=== PATIENT | female | born 1990 | race African-American/Black ===

== ENCOUNTER 2017-06-04 09:20 | Emergency (ER) | payer OTHER ==
[~2017-06-04] VITALS: Ht 165.1 cm; Wt 52.7 kg
[2017-06-04] MEDS ORDERED: DEXAMETHASONE SOD PHOS 4 MG/ML 5 ML VIAL IVP ONE (10:30)
[2017-06-04] MEDS ORDERED: DiphenhydrAMINE HCL 50 MG/ML VIAL IVP ONE (10:30)
[2017-06-04] MEDS ORDERED: SODIUM CHLORIDE 0.9% 1,000 ML IV ONE (10:45)
[2017-06-04 12:20] VITALS: BP 117/69
== END 2017-06-04 12:56 | disposition home or self-care (01) ==
LOC: EMS 09:20
DX: T78.40XA Allergy, unspecified, initial encounter (principal); K08.89 Other specified disorders of teeth and supporting structures; F17.210 Nicotine dependence, cigarettes, uncomplicated; Z88.0 Allergy status to penicillin
CPT/HCPCS: 96361; 96374; 96375; 99285; 99406; J1100; J1200; J7030

== ENCOUNTER 2018-05-22 15:10 | Emergency (ER) | payer MEDICAID, OTHER ==
[~2018-05-22] VITALS: Ht 170.2 cm; Wt 65.9 kg
[2018-05-22] MEDS ORDERED: IBUP-2070 PO (15:17)
[2018-05-22] MEDS ORDERED: IBUPROFEN 800 MG TABLET PO ONE (15:30)
[2018-05-22] MEDS ORDERED: CLINDAMYCIN HCL 150 MG CAPSULE PO ONE (15:30)
[2018-05-22 16:00] VITALS: BP 120/76
== END 2018-05-22 16:05 | disposition home or self-care (01) ==
LOC: EMS 15:14
DX: K02.9 Dental caries, unspecified (principal); F17.210 Nicotine dependence, cigarettes, uncomplicated; F41.9 Anxiety disorder, unspecified; Z88.0 Allergy status to penicillin
CPT/HCPCS: 99406

== ENCOUNTER 2020-01-03 04:49 | Emergency (ER) | payer MEDICAID ==
[~2020-01-03] VITALS: Ht 165.1 cm; Wt 54.5 kg
[2020-01-03] MEDS ORDERED: SODIUM CHLORIDE 0.9% 1,000 ML IV ONE (05:30)
[2020-01-03 05:48] LABS: ANION GAP 9 mmol/L (8-16); CALCIUM, TOTAL 8.6 mg/dL (8.8-10.5); CARBON DIOXIDE 27 mmol/L (22-29); CHLORIDE 103 mmol/L (98-107); CREATININE 0.68 mg/dL (0.60-1.30); GLOMERULAR FILTR. RATE CALC > 60 mL/min (>60); GLUCOSE,RANDOM 80 mg/dL (70-110); HEMATOCRIT 25.8 % (36-46); HEMOGLOBIN 7.6 g/dL (12.0-16.0); MEAN CORPUSCULAR HEMOGLOBIN 18.2 pg (26.0-34.0); MEAN CORPUSCULAR HGB CONC 29.5 G/dL (31.0-37.0); MEAN CORPUSCULAR VOLUME 61 fL (80-100); PLATELET COUNT (AUTO) 420 K/uL (150-450); POTASSIUM 3.5 mmol/L (3.5-5.1); SODIUM SERUM 139 mmol/L (136-145); UREA NITROGEN, BLOOD 11 mg/dL (7-18)
[2020-01-03 05:59] LABS: ALANINE AMINOTRANSFERASE 22 U/L (12-78); ALBUMIN 3.6 g/dL (3.4-5.0); ALKALINE PHOSPHATASE 83 U/L (46-116); ASPARTATE AMINOTRANSFERASE 17 U/L (15-37); HCG,QUANTITATIVE 1 mIU/mL (0-6); TOTAL PROTEIN, SERUM 6.3 g/dL (6.4-8.2)
[2020-01-03 06:10] LABS: BILIRUBIN,TOTAL 0.1 mg/dL (0.1-1.0)
[2020-01-03 06:45] LABS: BAND NEUTROPHILS % (MANUAL) 2 % (0-5); EOSINOPHILS % (MANUAL) 1 % (1-6); LYMPHOCYTES % (MANUAL) 26 % (22-44); MONOCYTES % (MANUAL) 4 % (2-9); SEGMENTED NEUTROPHILS % 67 % (40-70)
[2020-01-03 08:50] LABS: APPEARANCE,URINE CLEAR (CLEAR); BILIRUBIN,URINE NEGATIVE (NEGATIVE); GLUCOSE, URINE (UA) NEGATIVE (NEGATIVE); KETONES,URINE NEGATIVE (NEGATIVE); LEUKOCYTE ESTERASE ,URINE NEGATIVE (NEGATIVE); NITRATE,URINE NEGATIVE (NEGATIVE); OCCULT BLOOD,URINE LARGE (NEGATIVE); PROTEIN,URINE NEGATIVE (NEGATIVE); UROBILINOGEN,URINE 0.2 mg/dL (<=1.0)
[2020-01-03 09:03] LABS: BACTERIA,URINE None Seen /HPF (None Seen); RBC,URINE 51-100 /HPF (0-2); SQUAMOUS EPITHELIAL CELL,UR Moderate /LPF (None Seen); WBC,URINE None Seen /HPF (0-5)
[2020-01-03 09:19] LABS: HEMATOCRIT 23.2 % (36-46); MEAN CORPUSCULAR HGB CONC 29.5 G/dL (31.0-37.0); MEAN CORPUSCULAR VOLUME 61 fL (80-100); PLATELET COUNT (AUTO) 362 K/uL (150-450); RED CELL DISTRIBUTION WIDTH 19.6 % (11.5-14.5)
[2020-01-03 09:30] LABS: HEMOGLOBIN 6.9 g/dL (12.0-16.0)
[2020-01-03 09:46] LABS: BAND NEUTROPHILS % (MANUAL) 1 % (0-5); EOSINOPHILS % (MANUAL) 1 % (1-6); LYMPHOCYTES % (MANUAL) 25 % (22-44); MONOCYTES % (MANUAL) 5 % (2-9); SEGMENTED NEUTROPHILS % 68 % (40-70)
[2020-01-03 09:57] VITALS: BP 106/67
== END 2020-01-03 10:22 | disposition left against medical advice (07) ==
LOC: EMS 04:49
DX: O20.9 Hemorrhage in early pregnancy, unspecified (principal); O26.891 Other specified pregnancy related conditions, first trimester; O9A.311 Physical abuse complicating pregnancy, first trimester; N83.202 Unspecified ovarian cyst, left side; D64.9 Anemia, unspecified; F41.9 Anxiety disorder, unspecified; Z88.0 Allergy status to penicillin; Z3A.01 Less than 8 weeks gestation of pregnancy
CPT/HCPCS: 76830; 76856; 86850; 86900; 86901; 86923; 96360; 36415-L1; 36415-TC

== ENCOUNTER 2020-01-03 13:12 | Emergency (ER) | payer MEDICAID ==
[~2020-01-03] VITALS: Ht 165.1 cm; Wt 52.7 kg
[2020-01-03] MEDS ORDERED: SODIUM CHLORIDE 0.9% 1,000 ML ONE (14:22)
[2020-01-03 15:55] VITALS: BP 113/64
[2020-01-03 16:10] VITALS: BP 120/76
[2020-01-03 16:25] VITALS: BP 121/74
[2020-01-03 16:55] VITALS: BP 120/65
[2020-01-03 17:25] VITALS: BP 121/64
[2020-01-03 17:45] VITALS: BP 124/66
== END 2020-01-03 18:14 | disposition left against medical advice (07) ==
LOC: EMS 13:14
DX: D64.9 Anemia, unspecified (principal); N93.9 Abnormal uterine and vaginal bleeding, unspecified; F12.90 Cannabis use, unspecified, uncomplicated; F41.9 Anxiety disorder, unspecified; F17.210 Nicotine dependence, cigarettes, uncomplicated; Z88.0 Allergy status to penicillin
CPT/HCPCS: 36415; 36430; 86850; 86900; 86901; 86923; 99285; J7030; P9016

== ENCOUNTER 2020-11-25 01:11 | Emergency (ER) | payer MEDICAID ==
[~2020-11-25] VITALS: Ht 167.6 cm; Wt 53.6 kg
[2020-11-25 02:04] VITALS: BP 124/73
[2020-11-25] MEDS ORDERED: CLINDAMYCIN HCL 150 MG CAPSULE PO ONE (02:15)
== END 2020-11-25 02:22 | disposition home or self-care (01) ==
LOC: EMS 01:13
DX: K04.7 Periapical abscess without sinus (principal); F41.9 Anxiety disorder, unspecified; F17.210 Nicotine dependence, cigarettes, uncomplicated; F12.90 Cannabis use, unspecified, uncomplicated; Z88.0 Allergy status to penicillin
CPT/HCPCS: 99283

== ENCOUNTER 2021-03-03 23:41 | Emergency (ER) | payer MEDICAID ==
[~2021-03-03] VITALS: Ht 167.6 cm; Wt 54.5 kg
[2021-03-04 00:37] VITALS: BP 128/74
== END 2021-03-04 00:45 | disposition home or self-care (01) ==
LOC: EMS 23:46
DX: L30.9 Dermatitis, unspecified (principal); F12.90 Cannabis use, unspecified, uncomplicated; F17.210 Nicotine dependence, cigarettes, uncomplicated; F41.9 Anxiety disorder, unspecified; Z88.0 Allergy status to penicillin
CPT/HCPCS: 99283

== ENCOUNTER 2021-11-01 01:51 | Emergency (ER) | payer MEDICAID ==
[~2021-11-01] VITALS: Ht 167.6 cm; Wt 53.6 kg
[2021-11-01 01:54] VITALS: BP 134/78
[2021-11-01] MEDS ORDERED: DOXY-354 PO (02:51)
== END 2021-11-01 03:40 | disposition home or self-care (01) ==
LOC: EMS 01:53
DX: S40.862A Insect bite (nonvenomous) of left upper arm, initial encounter (principal); L02.414 Cutaneous abscess of left upper limb; F12.90 Cannabis use, unspecified, uncomplicated; F17.210 Nicotine dependence, cigarettes, uncomplicated; F41.9 Anxiety disorder, unspecified; Z88.0 Allergy status to penicillin; W57.XXXA Bitten or stung by nonvenomous insect and other nonvenomous arthropods, initial encounter; Y93.89 Activity, other specified; Y92.89 Other specified places as the place of occurrence of the external cause; Y99.8 Other external cause status
CPT/HCPCS: 99283

== ENCOUNTER 2022-04-19 05:49 | Emergency (ER) | payer MEDICAID, OTHER ==
[~2022-04-19] VITALS: Ht 167.6 cm; Wt 54.1 kg
[~2022-04-19 05:49] MED LIST: DOXY-354 PO
[2022-04-19] MEDS ORDERED: IBUPROFEN 600 MG TABLET PO ONE (06:15)
[2022-04-19] MEDS ORDERED: CLINDAMYCIN HCL 150 MG CAPSULE PO ONE (06:15)
[2022-04-19] MEDS ORDERED: CLIN-26 PO (06:18)
[2022-04-19 06:26] VITALS: BP 125/77
== END 2022-04-19 06:27 | disposition home or self-care (01) ==
LOC: EMS 05:50
DX: K08.89 Other specified disorders of teeth and supporting structures (principal); F41.9 Anxiety disorder, unspecified; F17.210 Nicotine dependence, cigarettes, uncomplicated; F12.90 Cannabis use, unspecified, uncomplicated; Z88.0 Allergy status to penicillin
CPT/HCPCS: 99283

== ENCOUNTER 2022-04-27 06:00 | Emergency (ER) | payer OTHER ==
[~2022-04-27] VITALS: Ht 167.6 cm; Wt 54.1 kg
[~2022-04-27 06:00] MED LIST changes: +CLIN-26 PO
[2022-04-27 06:13] VITALS: BP 156/80
[2022-04-27] MEDS ORDERED: LEVONORGESTREL 1.5 MG TABLET PO ONE (08:00)
== END 2022-04-27 08:21 | disposition home or self-care (01) ==
LOC: EMS 06:01
DX: N93.9 Abnormal uterine and vaginal bleeding, unspecified (principal); D50.9 Iron deficiency anemia, unspecified; F41.9 Anxiety disorder, unspecified; F17.210 Nicotine dependence, cigarettes, uncomplicated; F12.90 Cannabis use, unspecified, uncomplicated; Z98.890 Other specified postprocedural states; Z88.0 Allergy status to penicillin
CPT/HCPCS: 99282; 81025; Q9967; Z7502

== ENCOUNTER 2022-10-23 04:54 | Emergency (ER) | payer OTHER ==
[~2022-10-23] VITALS: Ht 167.6 cm; Wt 54.1 kg
[2022-10-23 04:57] VITALS: TEMP 98.5
[2022-10-23 05:09] VITALS: BP 117/71; PULSE 92; RESP 13
[2022-10-23] MEDS ORDERED: IBUP-1492 PO ×2 (06:37→06:55)
[2022-10-23] MEDS ORDERED: AMOX500C2 PO ×2 (06:37→06:55)
[2022-10-23] MEDS ORDERED: IBUPROFEN 600 MG TABLET PO ONE (06:45)
== END 2022-10-23 07:15 | disposition home or self-care (01) ==
LOC: EMS 04:55
DX: K04.7 Periapical abscess without sinus (principal); K02.9 Dental caries, unspecified; F41.9 Anxiety disorder, unspecified; F12.90 Cannabis use, unspecified, uncomplicated; F17.210 Nicotine dependence, cigarettes, uncomplicated; Z88.0 Allergy status to penicillin; Z79.899 Other long term (current) drug therapy
CPT/HCPCS: 99283

== ENCOUNTER 2023-11-16 01:16 | Emergency (ER) | payer OTHER ==
[~2023-11-16] VITALS: Ht 167.6 cm; Wt 72.7 kg
[~2023-11-16 01:16] MED LIST changes: +AMOX500C2 PO; +IBUP-1492 PO
[2023-11-16 01:25] VITALS: BP 102/54; PULSE 99; RESP 20; TEMP 98.1; O2SAT 99
[2023-11-16] MEDS: SODIUM CHLORIDE 0.9% 1,000 ML IV ONE (02:05)
[2023-11-16 02:19] LABS: BASOPHILS % (AUTO) 0.8 % (0.0-2.0); EOSINOPHILS % (AUTO) 0.8 % (1.0-6.0); HEMOGLOBIN 11.9 g/dL (12.0-16.0); LYMPHOCYTES % (AUTO) 21.3 % (22.0-44.0); MEAN CORPUSCULAR HEMOGLOBIN 30.2 pg (26.0-34.0); MEAN CORPUSCULAR HGB CONC 33.1 G/dL (31.0-37.0); MEAN CORPUSCULAR VOLUME 91 fL (80-100); MONOCYTES # (AUTO) 0.8 K/uL (0.1-1.0); MONOCYTES % (AUTO) 8.4 % (2.0-9.0); NEUTROPHILS # (AUTO) 6.4 K/uL (1.8-7.7); NEUTROPHILS % (AUTO) 68.7 % (40.0-70.0); PLATELET COUNT (AUTO) 293 K/uL (150-450); RED BLOOD CELL COUNT(AUTO) 3.95 MIL/uL (4.00-5.20); RED CELL DISTRIBUTION WIDTH 14.8 % (11.5-14.5); WHITE BLOOD COUNT (AUTO) 9.3 K/uL (4.5-11.0)
[2023-11-16 02:33] LABS: CALCIUM, TOTAL 8.5 mg/dL (8.8-10.5); CREATININE 1.08 mg/dL (0.60-1.30); POTASSIUM 3.7 mmol/L (3.5-5.1)
== END 2023-11-16 03:34 | disposition home or self-care (01) ==
LOC: EMS 01:18
DX: F32.A Depression, unspecified (principal); Z69.11 Encounter for mental health services for victim of spousal or partner abuse; N92.0 Excessive and frequent menstruation with regular cycle; D64.9 Anemia, unspecified; F17.210 Nicotine dependence, cigarettes, uncomplicated; F12.90 Cannabis use, unspecified, uncomplicated; J45.909 Unspecified asthma, uncomplicated; Z88.0 Allergy status to penicillin
CPT/HCPCS: 99283; 96360; 80048; 84703; 85025; 36415; J7030